=== PATIENT | male | born 1940 | race Two or more races ===

== ENCOUNTER 2022-03-29 10:38 | Emergency (ER) | payer OTHER ==
[~2022-03-29] VITALS: Ht 175.3 cm; Wt 68.0 kg
[~2022-03-29 10:38] MED LIST: ADULT ASPIRIN81 MG; COZAAR PO; Mucinex 600 MG TABLET.SA PO; XARELTO 15MG TAB PO; XARELTO20 MG PO
== END 2022-03-30 12:39 | disposition home or self-care (01) ==
LOC: ER 10:38
DX: U07.1 COVID-19 (principal); R41.0 Disorientation, unspecified; Z20.822 Contact with and (suspected) exposure to COVID-19

== ENCOUNTER 2022-04-05 13:23 | Inpatient (IN) | payer OTHER ==
[~2022-04-05] VITALS: Ht 182.9 cm; Wt 68.0 kg
== END 2022-08-05 00:27 | disposition expired | DRG 166 ==
LOC: MEDI 13:23 → MEDJ 13:23 → MEDI 04-09 09:08 → MEDJ 07-04 16:20
PROVIDERS: ADMIT Internal Medicine; ATTEND Internal Medicine
PROC: BW24ZZZ Computerized Tomography (CT Scan) of Chest and Abdomen (ICD-10-PCS; 2022-04-01)
PROC: BW28ZZZ Computerized Tomography (CT Scan) of Head (ICD-10-PCS; 2022-04-04)
PROC: BW24ZZZ Computerized Tomography (CT Scan) of Chest and Abdomen (ICD-10-PCS; 2022-04-04)
PROC: 0JBL0ZZ Excision of Right Upper Leg Subcutaneous Tissue and Fascia, Open Approach (ICD-10-PCS; principal; 2022-06-14)
PROC: 0QBQ0ZX Excision of Right Toe Phalanx, Open Approach, Diagnostic (ICD-10-PCS; 2022-06-21)
PROC: 0JDL0ZZ Extraction of Right Upper Leg Subcutaneous Tissue and Fascia, Open Approach (ICD-10-PCS; 2022-06-21)
PROC: 0JDM0ZZ Extraction of Left Upper Leg Subcutaneous Tissue and Fascia, Open Approach (ICD-10-PCS; 2022-06-28)
PROC: 0JDR0ZZ Extraction of Left Foot Subcutaneous Tissue and Fascia, Open Approach (ICD-10-PCS; 2022-06-28)
PROC: 0JDM0ZZ Extraction of Left Upper Leg Subcutaneous Tissue and Fascia, Open Approach (ICD-10-PCS; 2022-07-05)
PROC: 0JDR0ZZ Extraction of Left Foot Subcutaneous Tissue and Fascia, Open Approach (ICD-10-PCS; 2022-07-05)
PROC: 0KBR0ZZ Excision of Left Upper Leg Muscle, Open Approach (ICD-10-PCS; 2022-07-12)
PROC: 0JDM0ZZ Extraction of Left Upper Leg Subcutaneous Tissue and Fascia, Open Approach (ICD-10-PCS; 2022-07-19)
PROC: 02HV33Z Insertion of Infusion Device into Superior Vena Cava, Percutaneous Approach (ICD-10-PCS; 2022-07-19)
PROC: 8E0ZXY6 Isolation (ICD-10-PCS; 2022-07-19)
PROC: 0JDM0ZZ Extraction of Left Upper Leg Subcutaneous Tissue and Fascia, Open Approach (ICD-10-PCS; 2022-07-26)
PROC: 0JDL0ZZ Extraction of Right Upper Leg Subcutaneous Tissue and Fascia, Open Approach (ICD-10-PCS; 2022-08-02)
PROC: 4A12X4Z Monitoring of Cardiac Electrical Activity, External Approach (ICD-10-PCS; 2022-08-04)
PROC: 0BH17EZ Insertion of Endotracheal Airway into Trachea, Via Natural or Artificial Opening (ICD-10-PCS; 2022-08-04)
DX: U07.1 COVID-19 (principal); A41.9 Sepsis, unspecified organism; L89.214 Pressure ulcer of right hip, stage 4; L89.154 Pressure ulcer of sacral region, stage 4; L89.224 Pressure ulcer of left hip, stage 4; J96.01 Acute respiratory failure with hypoxia; J18.9 Pneumonia, unspecified organism; J12.82 Pneumonia due to coronavirus disease 2019; I26.99 Other pulmonary embolism without acute cor pulmonale; F02.818 Dementia in other diseases classified elsewhere, unspecified severity, with other behavioral disturbance; B37.49 Other urogenital candidiasis; Z16.12 Extended spectrum beta lactamase (ESBL) resistance; Z16.24 Resistance to multiple antibiotics; B37.89 Other sites of candidiasis; M86.171 Other acute osteomyelitis, right ankle and foot; M46.28 Osteomyelitis of vertebra, sacral and sacrococcygeal region; I96 Gangrene, not elsewhere classified; L97.516 Non-pressure chronic ulcer of other part of right foot with bone involvement without evidence of necrosis; B96.1 Klebsiella pneumoniae [K. pneumoniae] as the cause of diseases classified elsewhere; B96.89 Other specified bacterial agents as the cause of diseases classified elsewhere; R53.81 Other malaise; D64.9 Anemia, unspecified; G30.1 Alzheimer's disease with late onset; R41.0 Disorientation, unspecified; H91.8X9 Other specified hearing loss, unspecified ear; Z60.2 Problems related to living alone; Z86.711 Personal history of pulmonary embolism; Z75.2 Other waiting period for investigation and treatment; Z59.1 Inadequate housing; Z74.01 Bed confinement status; Z85.038 Personal history of other malignant neoplasm of large intestine; Y95 Nosocomial condition